=== PATIENT | male | born 1970 | race Caucasian/White ===

== ENCOUNTER 2020-03-30 10:34 | Emergency (ER) | payer BC, OTHER ==
[2020-03-30] MEDS ORDERED: Sodium Chloride 0.9% 1,000 ML IV ONE (10:42)
[2020-03-30] MEDS ORDERED: Sodium Chloride 0.9% 10 ML Syringe FLUSH PRN (10:42)
[2020-03-30] MEDS ORDERED: Sodium Chloride 0.9% 2.5 ML Syringe FLUSH PRN (10:42)
--- NOTE | 2020-03-30 10:55 | EDM.PDOC ---
ED HPI GENERAL MEDICAL PROBLEM - General Chief Complaint: Respiratory Problem Stated Complaint: SHORT OF BREATH Time Seen by Provider: 03/30/20 10:35 Source of Information: Reports: Patient History Limitations: Reports: No Limitations - History of Present Illness INITIAL COMMENTS - FREE TEXT/NARRATIVE: HISTORY AND PHYSICAL: History of present illness: Patient is a 50-year-old male who presents to the emergency room with complaints of palpitations and fluctuation of his pulse rate. States approximately a year ago he had newly developed atrial fibrillation which he had an ablation for. Last month he started having episodes where he felt his pulse would go very high and occasionally into the 60s (which he is stating is "too low for me"). Describes it as a heavy sensation in his chest/palpitations. He also states his blood pressure would fluctuate (but within normal range). These fluctuations cause him to feel dizzy, nauseated and fatigued. He states he had a echoc ardiogram and cardiac work-up last month with his PCP and is scheduled to see Dr. Patel (harness builder) tomorrow. Patient denies any fever, chills, headache, change in vision, syncope or near syncope. Denies any chest pain, back pain, hemoptysis or cough. Denies any abdominal pain, vomiting, diarrhea, constipation or dysuria. Has not noted any blood in urine or stool. Patient has been eating and drinking appropriately. Review of systems: As per history of present illness and below otherwise all systems reviewed and negative. Past medical history: As per history of present illness and as reviewed below otherwise noncontributory. Surgical history: As per history of present illness and as reviewed below otherwise noncontributory. Social history: See social history for further information Family history: As per history of present illness and as reviewed below otherwise noncontributory. Physical exam: General: Well developed and well nourished 50 year old male. Alert and orientated x 3. Nontoxic in appearance and in no acute distress. Vital signs are stable and have been reviewed by me. Nursing notes were reviewed. HEENT: Atraumatic, normocephalic, pupils equal and reactive bilaterally, negative for conjunctival pallor or scleral icterus, mucous membranes moist, TMs normal bilaterally, throat clear, neck supple, nontender, trachea midline. No drooling or trismus noted. No meningeal signs. No hot potato voice noted. Lungs: Clear to auscultation bilaterally. No wheezes, rales, or rhonchi. Chest nontender. Normal work of breathing, no accessory muscles used. Heart: S1S2, regular rate and rhythm without overt murmur, gallops, or rubs. No JVD. No peripheral edema Abdomen: Soft, nondistended, nontender. Normoactive bowel sounds. Negative for masses or costovertebral tenderness. Skin: Intact, warm, dry. No lesions or rashes noted. Hematologic: No petechiae or purpra. Mucosa appropriate color and normal nail bed color and refill. Extremities: Atraumatic, moves all extremities per self without difficulty or deficits, negative for cords or calf pain. Neurovascular unremarkable. Neuro: Awake, alert, oriented. Cranial nerves II through XII unremarkable. Ce rebellum unremarkable. Motor and sensory unremarkable throughout. Exam nonfocal. Psychiatric: Mood and affect are appropriate. Normal thought process. Answering questions appropriately. Notes: *This patient was seen and evaluated during the 2019 SARS-CoV-2 novel coronavirus pandemic period. Community viral transmission is ongoing at time of this encounter and the emergency department is operating under pandemic response procedures. WELLS' Criteria: Low risk group. HEART Score: Low risk group. EKG shows a sinus rhythm of rate of 67, no concern for STEMI. Chest x-ray is unremarkable. Today's lab work is unremarkable. Patient states he feels fine while he's here. I did call and speak with Dr Perrin's nurse, who confirms he has an appointment tomorrow at 2pm for reported bradycardia. I have talked with the patient about today's findings, in addition to providing specific details for plan of care. Reassessment at the time of disposition demonstrates that the patient is in no acute distress. He has not had any episodes while here in the ED. He feels safe to go home and follow up with cardiology tomorrow. The patient is stable for discharge, counseling was provided and we discussed in great detail signs and symptoms that would prompt them to return to the Emergency Department. Medication, follow up and supportive care measures were reviewed and discussed. Voices understanding and is agreeable to plan of care. Denies any further questions or concerns at this time. Diagnostics: CBC, CMP, Troponin, EKG, CXR, COVID, TSH, UA Therapeutics: NS at 100mls/hr Prescription: None Impression: Palpitations Plan: 1. Today your lab work is unremarkable. Your chest x-ray and EKG are within normal limits. Please attend your appointment with the harness builder tomorrow at 2 PM as you already have arranged. If your symptoms should worsen, new symptoms develop or any of the signs and symptoms we discussed should arise please return to the emergency room or call 911 (if needed). 2. You can alternate Tylenol and ibuprofen as needed for pain and fever management. Definitive disposition and diagnosis as appropriate pending reevaluation and review of above. - Related Data Allergies Allergy/AdvReac Type Severity Reaction Status Date / Time No Known Allergies Allergy Verified 03/30/20 11:16 Home Meds: Home Meds Levothyroxine Sodium [Levothyroxine] mcg PO DAILY 03/30/20 [History] Rosuvastatin [Crestor] mg PO BEDTIME 03/30/20 [History] ED ROS GENERAL - Review of Systems Review Of Systems: Comprehensive ROS is negative, except as noted in HPI. ED EXAM, GENERAL - Physical Exam Exam: See Below (See dictation) Course - Vital Signs Last Recorded V/S: Last Vital Signs Temp 97.7 F 03/30/20 10:48 Pulse 74 03/30/20 10:48 Resp 16 03/30/20 10:48 BP 142/79 H 03/30/20 10:48 Pulse Ox 97 03/30/20 10:48 - Orders/Labs/Meds Orders: Active Orders 24 hr Category Date Time Status EKG Documentation Completion [RC] STAT Care 03/30/20 10:42 Active Sodium Chloride 0.9% [Normal Saline] 1,000 ml Med 03/30/20 10:42 Active IV STAT Sodium Chloride 0.9% [Saline Flush] Med 03/30/20 10:42 Active 10 ml FLUSH ASDIRECTED PRN Sodium Chloride 0.9% [Saline Flush] Med 03/30/20 10:42 Active 2.5 ml FLUSH ASDIRECTED PRN Saline Lock Insert [OM.PC] Stat Oth 03/30/20 10:42 Ordered Medication Orders Sodium Chloride (Normal Saline) 1,000 mls @ 125 mls/hr IV STAT ONE Stop: 03/30/20 18:41 Last Admin: 03/30/20 11:16 Dose: 125 mls/hr Documented by: KADI Sodium Chloride (Saline Flush) 10 ml FLUSH ASDIRECTED PRN PRN Reason: Keep Vein Open Last Admin: 03/30/20 11:16 Dose: 10 ml Documented by: KADI Sodium Chloride (Saline Flush) 2.5 ml FLUSH ASDIRECTED PRN PRN Reason: Keep Vein Open Last Admin: 03/30/20 11:16 Dose: 2.5 ml Documented by: KADI Labs: Laboratory Tests 03/30/20 03/30/20 Range/Units 10:40 10:40 WBC 9.55 (4.0-11.0) K/uL RBC 4.91 (4.50-5.90) M/uL Hgb 15.4 (13.0-17.0) g/dL Hct 45.1 (38.0-50.0) % MCV 91.9 (80.0-98.0) fL MCH 31.4 (27.0-32.0) pg MCHC 34.1 (31.0-37.0) g/dL RDW Std Deviation 42.5 (28.0-62.0) fl RDW Coeff of Ciarra 13 (11.0-15.0) % Plt Count 152 (150-400) K/uL MPV 11.50 (7.40-12.00) fL Neut % (Auto) 60.9 (48.0-80.0) % Lymph % (Auto) 30.6 (16.0-40.0) % [place] % (Auto) 7.6 (0.0-15.0) % Eos % (Auto) 0.6 (0.0-7.0) % Baso % (Auto) 0.3 (0.0-1.5) % Neut # (Auto) 5.8 H (1.4-5.7) K/uL Lymph # (Auto) 2.9 H (0.6-2.4) K/uL [place] # (Auto) 0.7 (0.0-0.8) K/uL Eos # (Auto) 0.1 (0.0-0.7) K/uL Baso # (Auto) 0.0 (0.0-0.1) K/uL Nucleated RBC % 0.0 /100WBC Nucleated RBCs # 0 K/uL Sodium 143 (136-148) mmol/L Potassium 4.0 (3.5-5.1) mmol/L Chloride 109 H (98-107) mmol/L Carbon Dioxide 26.4 (21.0-32.0) mmol/L BUN 16 (7.0-18.0) mg/dL Creatinine 1.5 H (0.8-1.3) mg/dL Est Cr Clr Drug Dosing 60.16 mL/min Estimated GFR (MDRD) 49.3 ml/min Glucose 97 (74-106) mg/dL Calcium 9.0 (8.5-10.1) mg/dL Total Bilirubin 0.5 (0.2-1.0) mg/dL AST 20 (15-37) IU/L ALT 50 (14-63) IU/L Alkaline Phosphatase 62 (46-116) U/L Troponin I < 0.050 (0.000-0.056) ng/mL Total Protein 7.3 (6.4-8.2) g/dL Albumin 3.9 (3.4-5.0) g/dL Globulin 3.4 (2.6-4.0) g/dL Albumin/Globulin Ratio 1.1 (0.9-1.6) TSH 3rd Generation 0.84 (0.36-3.74) uIU/mL Meds: Medications Generic Name Dose Route Start Last Admin Trade Name Freq PRN Reason Stop Dose Admin Sodium Chloride 1,000 mls @ 125 mls/hr 03/30/20 10:42 03/30/20 11:16 Normal Saline IV 03/30/20 18:41 125 mls/hr STAT ONE Administration Sodium Chloride 10 ml 03/30/20 10:42 03/30/20 11:16 Saline Flush FLUSH 10 ml ASDIRECTED PRN Administration Keep Vein Open Sodium Chloride 2.5 ml 03/30/20 10:42 03/30/20 11:16 Saline Flush FLUSH 2.5 ml ASDIRECTED PRN Administration Keep Vein Open Departure - Departure Time of Disposition: 11:54 Disposition: Home, Self-Care 01 Clinical Impression: Palpitations - Discharge Information Instructions: Palpitations, [id number] Forms: ED Department Discharge Additional Instructions: The following information is given to patients seen in the emergency department who are being discharged to home. This information is to outline your options for follow-up care. We provide all patients seen in our emergency department with a follow-up referral. The need for follow-up, as well as the timing and circumstances, are variable depending upon the specifics of your emergency department visit. If you don't have a primary care physician on staff, we will provide you with a referral. We always advise you to contact your personal physician following an emergency department visit to inform them of the circumstance of the visit and for follow-up with them and/or the need for any referrals to a consulting specialist. The emergency department will also refer you to a specialist when appropriate. This referral assures that you have the opportunity for follow-up care with a specialist. All of these measure are taken in an effort to provide you with optimal care, which includes your follow-up. Under all circumstances we always encourage you to contact your private physician who remains a resource for coordinating your care. When calling for follow-up care, please make the office aware that this follow-up is from your recent emergency room visit. If for any reason you are refused follow-up, please contact the [facility] Emergency Department at and asked to speak to the emergency department charge nurse. [facility] [address] [place] [address] [id number] [address] Thank you for choosing the [facility] emergency department in [place] for your medical needs today. It was a pleasure caring for you. Today you were seen in the emergency department for fluctuation in pulse and blood pressure. 1. Today your lab work is unremarkable. Your chest x-ray and EKG are within normal limits. Please attend your appointment with the harness builder tomorrow at 2 PM as you already have arranged. If your symptoms should worsen, new symptoms develop or any of the signs and symptoms we discussed should arise please return to the emergency room or call 911 (if needed). 2. You can alternate Tylenol and ibuprofen as needed for pain and fever management. Sepsis Event Note (ED) - Focused Exam Vital Signs: Vital Signs Temp Pulse Resp BP Pulse Ox 03/30/20 10:48 97.7 F 74 16 142/79 H 97 - My Orders Last 24 Hours: My Active Orders 03/30/20 10:42 EKG Documentation Completion [RC] STAT Sodium Chloride 0.9% [Normal Saline] 1,000 ml IV STAT Sodium Chloride 0.9% [Saline Flush] 10 ml FLUSH ASDIRECTED PRN Sodium Chloride 0.9% [Saline Flush] 2.5 ml FLUSH ASDIRECTED PRN Saline Lock Insert [OM.PC] Stat - Assessment/Plan Last 24 Hours: My Active Orders 03/30/20 10:42 EKG Documentation Completion [RC] STAT Sodium Chloride 0.9% [Normal Saline] 1,000 ml IV STAT Sodium Chloride 0.9% [Saline Flush] 10 ml FLUSH ASDIRECTED PRN Sodium Chloride 0.9% [Saline Flush] 2.5 ml FLUSH ASDIRECTED PRN Saline Lock Insert [OM.PC] Stat
--- NOTE | 2020-03-30 11:11 | CR ---
INDICATION: Palpitations TECHNIQUE: Single view chest. FINDINGS: The lungs are clear. The heart, mediastinum and pulmonary vessels are of normal size. There is no evidence of pleural disease. IMPRESSION: Negative chest. Dictated by Kita Castro MD @ Mar 30 2020 11:09AM Signed by Dr. Kita Castro @ Mar 30 2020 11:09AM
--- NOTE | 2020-03-30 11:23 | PCM.SN.2 ---
#1 Interpretation EKG Date: 03/30/20 Time: 10:38 Rhythm: NSR Rate (Beats/Min): 67 [place]: Normal P-Wave: Present QRS: Normal ST-T: Normal QT: Normal DE/PQ Interval: 157 EKG Interpretation Comments: non-ischemic
[2020-03-30 11:26] LABS: BLOOD UREA NITROGEN,BUN 16 mg/dL (7.0-18.0); CARBON DIOXIDE,CO2 26.4 mmol/L (21.0-32.0); CHLORIDE,CL 109 mmol/L (98-107); GLUCOSE RANDOM 97 mg/dL (74-106); SODIUM,NA 143 mmol/L (136-148)
== END 2020-03-30 12:48 | disposition home or self-care (01) ==
LOC: MW.ED 10:34
DX: R00.2 Palpitations (principal); Z79.899 Other long term (current) drug therapy
CPT/HCPCS: 36415; 71045; 80053; 84443; 84484; 85025; 93005; 99285; J7030; 93010

== ENCOUNTER 2020-10-29 12:18 | Emergency (ER) | payer BC ==
[2020-10-29] MEDS ORDERED: Diltiazem 25 MG/5 ML SDV IVPUSH ONE (12:45)
[2020-10-29 13:21] LABS: BLOOD UREA NITROGEN,BUN 15 mg/dL (7.0-18.0); CARBON DIOXIDE,CO2 26.5 mmol/L (21.0-32.0); CHLORIDE,CL 105 mmol/L (98-107); GLUCOSE RANDOM 118 mg/dL (74-106); POTASSIUM,K 4.3 mmol/L (3.5-5.1); SODIUM,NA 140 mmol/L (136-148)
[2020-10-29] MEDS ORDERED: Magnesium Oxide 400 MG Tab PO ONE (13:30)
--- NOTE | 2020-10-29 14:53 | CR ---
INDICATION: AFib TECHNIQUE: Single view chest. FINDINGS: The lungs are clear. The heart, mediastinum and pulmonary vessels are of normal size. There is no evidence of pleural disease. IMPRESSION: Negative chest. Dictated by Kita Castro MD @ 10/29/2020 2:51:[address] Kita Castro @ Oct 29 2020 2:51PM
--- NOTE | 2020-10-29 15:03 | EDM.PDOC ---
ED HPI GENERAL MEDICAL PROBLEM - General Chief Complaint: Cardiovascular Problem Time Seen by Provider: 10/29/20 12:28 - History of Present Illness INITIAL COMMENTS - FREE TEXT/NARRATIVE: CHIEF COMPLAINT(S): Palpitations HISTORY OF PRESENT ILLNESS: This is a 50-year-old man with a past medical history of atrial fibrillation status post ablation approximately 2 years ago is not on any medication or anticoagulation who presents to the emergency department with palpitations. The patient states that prior to arrival he started to experience palpitations. He has been experiencing couple of episodes of palpitations. They are going on for greater than 4 hours. He denies any chest pain, shortness of breath, abdominal pain, nausea or vomiting. He states that he just feels that he is running a race. He denies any recent travel, recent surgery, prior history of DVT or PE. He denies any cocaine use or excessive caffeine use. REVIEW OF SYSTEMS: Constitutional: Denies fever, chills. Eyes: Denies eye pain Ears, Nose, Mouth, & Throat: Denies earache Cardiovascular: Positive for palpitations denies chest pain Respiratory: Denies shortness of breath Gastrointestinal: Denies Nausea, vomiting, diarrhea, hematochezia. Genitourinary: Denies hematuria Skin:Denies a rash MSK: Denies joint pain Neurological: Denies blurred vision Psychiatric: Denies depression PAST MEDICAL HISTORY: As per history of present illness and as reviewed below otherwise noncontributory. SURGICAL HISTORY: As per history of present illness and as reviewed below otherwise noncontributory. SOCIAL HISTORY: As per history of present illness and as reviewed below otherwise noncontributory. FAMILY HISTORY: As per history of present illness and as reviewed below otherwise noncontributory. EXAMINATION OF ORGAN SYSTEMS/BODY AREAS: Constitutional: Blood pressure was 118/87, heart rate 158, respiratory rate 18 with a saturation of 98% on room air. Temperature 37.1 General: Well-appearing man who is in no acute distress Psychiatric: Appropriate mood and affect. Eyes: No scleral icterus or conjunctival erythema ENMT: Moist mucous membranes. No pharyngeal erythema Cardiovascular: Irregularly irregular rate and rhythm no gallops, murmurs, or rubs. Bilateral upper extremity pulses symmetric and intact. No peripheral edema. No JVD. Respiratory: Lungs clear to auscultation bilaterally. No wheezes, rales, or rhonchi. Gastrointestinal: Soft, non-tender, non-distended. Normoactive bowel sounds Genitourinary: No suprapubic tenderness Musculoskeletal: Normal range of motion. Skin: No lesions or abrasions. Neurological: Alert, GCS 15 MEDICAL DECISION MAKING AND COURSE IN THE ED WITH INTERPRETATION/REVIEW OF DIAGNOSTIC STUDIES: This is a 50-year-old man with a past medical prescription atrial fibrillation status post ablation approximately 2 years ago who is not on any medication for atrial fibrillation who presents to the emergency department with palpitations. Immediately upon entering the room we did place the patient on diagnostic cardiac sonographer and on cardiac monitoring did reveal that he was in atrial fibrillation with RVR. We will obtain an EKG. Pulse oximetry at this time is appropriate at 98% with good waveform. At this time given the duration of symptoms and his history of atrial fibrillation we will obtain a BMP, troponin and a TSH. Given that his less than 24 to 48 hours I did contact [facility] in [place] to speak with Dr. Sola Lawrence regarding possible cardioversion. He recommended against cardioversion at this time continue rate control. EKG was obtained which did reveal atrial fibrillation with RVR. Laboratory: BMP reveals elevated creatinine of 1.4, hyperglycemia at 118. Magnesium is low at 1.7. Troponin is negative. TSH is normal. Given atrial fibrillation with RVR I did provide the patient with 25 mg of IV diltiazem. After approximately 60 seconds the patient's heart rate is now controlled and was in the 80s. Given the hypomagnesemia we will provide the patient with magnesium oxide by mouth. Obtain a chest x-ray. The radiological images were viewed by myself along with reading the report from the radiologist. Chest x-ray does not reveal any acute cardiopulmonary process. At this time the patient was able to provide me with his prior medication which was verapamil. I contacted our hospitalist at this time to get some further recommendations as I do not believe the patient requires admission as he has a retail operations manager here that he can follow-up with. At this time he is low risk for blood clots therefore no anticoagulation will be started. We will start the patient on his home verapamil and start him on low-dose aspirin. He will follow up with cardiology this week. He was no discharge at this time and had no further questions DISPOSITION: The patient was discharged home in stable condition. The patient will follow up with cardiology within 1 to 3 days CONDITION: Fair PROCEDURES: Cardiac monitoring interpretation, pulse oximetry interpretation FINAL IMPRESSION(S)/DIAGNOSES: 1. Acute atrial fibrillation with RVR Critical Care Procedure Note Authorized and performed by: Rob Servin M.D. Critical Care Time: 40 minutes Due to a high probability of clinically significant, life threatening deterioration, the patient required my highest level of preparedness to intervene emergently and I personally spent this critical care time directly and personally managing the patient. This critical care time included obtaining a history, examining the patient, pulse oximetry; ordering and review of studies; arranging urgent treatment with development of a management plan; evaluation of a patients reponse to treatment; frequent assessment; and discussions with other providers. This critical care time was performed to assess and manage the high probability of imminent, life threatening deterioration that could result in multiorgan failure. It was exclusive of separate billable procedures and treating other patients. Please see MDM section and rest of the note for further information on patient assessment and treatment. Please see MDM section and rest of the note for further information on patient assessment and treatment. Rob Servin M.D. - Related Data Allergies Allergy/AdvReac Type Severity Reaction Status Date / Time No Known Allergies Allergy Verified 10/29/20 12:29 Home Meds: Home Meds Levothyroxine Sodium [Levothyroxine] mcg PO DAILY 03/30/20 [History] Rosuvastatin [Crestor] mg PO BEDTIME 03/30/20 [History] Verapamil HCl [Verapamil Sr] 120 mg PO DAILY #30 cap24h.pel 10/29/20 [Rx] Past Medical History Cardiovascular History: Reports: Afib, High Cholesterol - Infectious Disease History Infectious Disease History: Reports: None Social & Family History - Family History Family Medical History: No Pertinent Family History - Tobacco Use Tobacco Use Status *Q: Never Tobacco User - Caffeine Use Caffeine Use: Reports: None - Recreational Drug Use Recreational Drug Use: No Drug Use in Last 12 Months: No ED ROS GENERAL - Review of Systems Review Of Systems: See Below ED EXAM, GENERAL - Physical Exam Exam: See Below Course - Vital Signs Last Recorded V/S: Last Vital Signs Temp 37.1 C 10/29/20 12:38 Pulse 97 10/29/20 14:33 Resp 18 10/29/20 14:33 BP 119/78 10/29/20 14:33 Pulse Ox 97 10/29/20 14:33 - Orders/Labs/Meds Labs: Laboratory Tests 10/29/20 Range/Units 12:37 Sodium 140 (136-148) mmol/L Potassium 4.3 (3.5-5.1) mmol/L Chloride 105 (98-107) mmol/L Carbon Dioxide 26.5 (21.0-32.0) mmol/L BUN 15 (7.0-18.0) mg/dL Creatinine 1.4 H (0.8-1.3) mg/dL Est Cr Clr Drug Dosing 64.45 mL/min Estimated GFR (MDRD) 53.4 ml/min Glucose 118 H (74-106) mg/dL Calcium 8.9 (8.5-10.1) mg/dL Magnesium 1.7 L (1.8-2.4) mg/dL Troponin I < 0.050 (0.000-0.056) ng/mL TSH, Ultra Sensitive 2.68 (0.36-3.74) uIU/mL Meds: Medications Discontinued Medications Generic Name Dose Route Start Last Admin Trade Name Freq PRN Reason Stop Dose Admin Diltiazem HCl 25 mg 10/29/20 12:45 10/29/20 12:50 Diltiazem 25 Mg/5 Ml Sdv IVPUSH 10/29/20 12:46 25 mg ONETIME ONE Administration Magnesium Oxide 800 mg 10/29/20 13:30 10/29/20 13:56 Magnesium Oxide 400 Mg Tab PO 10/29/20 13:31 800 mg ONETIME ONE Administration Departure - Departure Time of Disposition: 15:00 Disposition: Home, Self-Care 01 Condition: Fair Clinical Impression: Atrial fibrillation - Discharge Information *PRESCRIPTION DRUG MONITORING PROGRAM REVIEWED*: No *COPY OF PRESCRIPTION DRUG MONITORING REPORT IN PATIENT GEOVANY: No Prescriptions: Verapamil HCl [Verapamil Sr] 120 mg PO DAILY #30 cap24h.pel Instructions: Atrial Fibrillation, [id number] Referrals: PCP,None [Primary Care Provider] - Chris Patel MD [Physician] - Forms: ED Department Discharge Additional Instructions: You were evaluated today on an emergent basis. At this time given your history of atrial fibrillation we did decide to control your heart rate instead of c ardiovert. We will start you on your home medication as before and I recommend you take 81 mg of aspirin daily. As discussed I would like you to follow-up with cardiology within [address] to [address] you on the follow-up list. It is important that you make this appointment that is scheduled for you. You will be contacted with the appointment time. Please return to the emergency department if you have any chest pain, shortness of breath, or feel like your heart is racing again. [facility] [address] [place] [id number] [facility] [address] [place] [id number] The patient is informed of any results of their evaluation and diagnostic workup and all questions are answered. They are given discharge instructions and return precautions. The patient is stable for discharge. The patient states they understand and agree with the plan and that they will return if their symptoms get worse or if they have any new concerns. The following information is given to patients seen in the emergency department who are being discharged to home. This information is to outline your options for follow-up care. We provide all patients seen in our emergency department with a follow-up referral. The need for follow-up, as well as the timing and circumstances, are variable depending upon the specifics of your emergency department visit. If you don't have a primary care physician on staff, we will provide you with a referral. We always advise you to contact your personal physician following an emergency department visit to inform them of the circumstance of the visit and for follow-up with them and/or the need for any referrals to a consulting specialist. The emergency department will also refer you to a specialist when appropriate. This referral assures that you have the opportunity for follow-up care with a specialist. All of these measure are taken in an effort to provide you with optimal care, which includes your follow-up. Under all circumstances we always encourage you to contact your private physician who remains a resource for coordinating your care. When calling for follow-up care, please make the office aware that this follow-up is from your recent emergency room visit. If for any reason you are refused follow-up, please contact the [facility] Emergency Department at and asked to speak to the emergency department charge nurse.
--- NOTE | 2020-10-30 07:12 | PCM.EKG ---
#1 Interpretation EKG Date: 10/29/20 Time: 12:22 Rhythm: A-Fib Rate (Beats/Min): 155 Wells: Normal P-Wave: Absent QRS: Normal ST-T: Normal QT: Normal Comparison: Change From Previous EKG (03/30/20 -> sinus rhythm) EKG Interpretation Comments: Atrial fibrillation with RVR #2 Interpretation EKG Date: 10/29/20 Time: 12:56 Rhythm: A-Fib Rate (Beats/Min): 87 Wells: Normal P-Wave: Absent QRS: Normal ST-T: Normal QT: Normal Comparison: No Change (today) EKG Interpretation Comments: Atrial Fibrillation, RVR resolved
== END 2020-10-29 15:28 | disposition home or self-care (01) ==
LOC: MW.ED 12:18
DX: I48.91 Unspecified atrial fibrillation (principal); E78.00 Pure hypercholesterolemia, unspecified; Z79.899 Other long term (current) drug therapy
CPT/HCPCS: 36415; 71045; 80048; 83735; 84443; 84484; 93005; 96374; 99285; A9270; J3490; 99291

== ENCOUNTER 2020-11-05 20:49 | Emergency (ER) | payer BC ==
[2020-11-05] MEDS ORDERED: Sodium Chloride 0.9% 2.5 ML Syringe FLUSH PRN (21:04)
[2020-11-05] MEDS ORDERED: Sodium Chloride 0.9% 10 ML Syringe FLUSH PRN (21:04)
--- NOTE | 2020-11-05 21:07 | PCM.EKG ---
#1 Interpretation EKG Interpretation Comments: EKG: As interpreted by ER physician: Marnie: Nonspecific ST-T wave abnormalities Normal axis No evidence of ST elevation [place] Normal sinus rhythm heart rate of 83 November 05, 2020 8:56 PM
[2020-11-05 22:04] LABS: BLOOD UREA NITROGEN,BUN 20 mg/dL (7.0-18.0); CARBON DIOXIDE,CO2 26.7 mmol/L (21.0-32.0); CHLORIDE,CL 104 mmol/L (98-107); GLUCOSE RANDOM 119 mg/dL (74-106); SODIUM,NA 141 mmol/L (136-148)
--- NOTE | 2020-11-05 22:45 | EDM.PDOC ---
ED HPI GENERAL MEDICAL PROBLEM - General Chief Complaint: Chest Pain Stated Complaint: CHEST PAINS Time Seen by Provider: 11/05/20 21:02 - History of Present Illness INITIAL COMMENTS - FREE TEXT/NARRATIVE: HISTORY AND PHYSICAL: History of present illness: This a 50-year-old gentleman with history significant for atrial fibrillation who is status post ablation and electrical cardioversion approximately 1 and 1/2 years ago who had a normal cardiac catheterization at that time who presents ER today complaining of left-sided discomfort in his chest and shoulder that started earlier this evening approximate 1 hour prior to arrival. Patient reports that he was recently in atrial fibrillation for the last week. He reports he was seen and evaluated in the hospital and was discharged home on verapamil for rate control. He reports that he was able to see his product grader, Dr. Vaughan in the office. He reports that at that time he was started on anticoagulation therapy and was informed that he would need electrical cardioversion in several weeks. Patient reports he has been doing fairly well over the last several days. He reports that earlier this evening he felt himself go back into sinus rhythm and since then he has been feeling a discomfort in his left chest. Patient denies any recent fevers, shakes, chills, nausea, vomiting, diarrhea, dysuria, frequency, urgency, shortness of breath, abdominal pain. Patient reports no pain or discomfort rating to his jaw or back. Patient denies any diaphoresis, shortness of breath, nausea. Patient reports no change in his discomfort with exertion or ambulation. Patient r eports no change in discomfort with deep inspiration. Patient reports that the pain has been persistent for approximately 2 hours prior to arrival to the ED. Review of systems: As per history of present illness and below otherwise all systems reviewed and negative. Past medical history: As per history of present illness and as reviewed below otherwise noncontributory. Surgical history: As per history of present illness and as reviewed below otherwise noncontributory. Social history: No reported history of drug abuse. Family history: As per history of present illness and as reviewed below otherwise noncontributory. Physical exam: This patient was seen and evaluated during the 2019 SARS-CoV-2 novel coronavirus pandemic period. Community viral transmission is ongoing at time of this encounter and the emergency department is operating under pandemic response procedures. Constitutional: Patient is oriented to person, place, and time. Appears well- developed and well-nourished. No distress. HEENT: Moist mucous membranes Head: Normocephalic and atraumatic Eyes: Right eye exhibits no discharge. Left eye exhibits no discharge. No scleral icterus Neck: Normal range of motion. No tracheal deviation present. Cardiovascular: Normal rate and regular rhythm. Pulmonary: Effort normal, no respiratory distress. Abdominal: No distention Musculoskeletal: Normal range of motion Neurologic: Alert and oriented to person, place and time. Skin: [place], warm and dry. Psychiatric: Normal mood and affect. Behavior is normal. Judgment and thought content normal. Nursing note and vital signs have been reviewed Diagnostics: Chest Xray: Normal cardiac silhouette No infiltrates or effusions identified. No PTX No evidence of acute bony fracture. As interpreted by ER MD: Marnie Castro: [] Assessment and plan: This is a 50-year-old gentleman who presents to the ED today complaining of atypical left-sided chest pain. Patient has been in A. fib for approximately 1 week now and just recently cardioverted prior to the symptoms starting earlier this evening. Patient is currently on anticoagulation therapy. Patient reports he had a normal cardiac catheterization approximate 1-1/2 years ago. Patient's EKG is unremarkable without any evidence of ischemia. Given that the patient was recently in rapid A. fib and had no evidence of ischemia it is unlikely that he has any significant coronary artery disease as he is already had his own stress test. Patient's troponin is normal. Patient's presentation is highly unlikely for cardiac etiology/ischemia. Utilizing shared decision making, the patient feels comfortable with the plan to be discharged home to resume follow- up with Dr. Vaughan. Patient will return to the ED if he start developing any worsening discomfort, shortness of breath or any other new or concerning symptoms. Reassessment at the time of disposition demonstrates that the patient is in no acute distress. The patient has remained stable throughout the entire ED visit and is without objective evidence for acute process requiring urgent intervention or hospitalization. The patient is stable for discharge, counseling is provided as documented above, discussed symptomatic treatment and specific conditions for return. I have spoken with the patient/caregiver and discussed todays findings, in addition to providing specific details for the plan of care. Questions are answered and there is agreement with the plan. Definitive disposition and diagnosis as appropriate pending reevaluation and review of above. - Related Data Allergies Allergy/AdvReac Type Severity Reaction Status Date / Time No Known Allergies Allergy Verified 10/29/20 12:29 Home Meds: Home Meds Levothyroxine Sodium [Levothyroxine] mcg PO DAILY 03/30/20 [History] Rosuvastatin [Crestor] mg PO BEDTIME 03/30/20 [History] Verapamil HCl [Verapamil Sr] 120 mg PO DAILY #30 cap24h.pel 10/29/20 [Rx] Past Medical History Cardiovascular History: Reports: Afib, High Cholesterol - Infectious Disease History Infectious Disease History: Reports: None Social & Family History - Family History Family Medical History: No Pertinent Family History - Caffeine Use Caffeine Use: Reports: None ED ROS GENERAL - Review of Systems Review Of Systems: See Below ED EXAM, GENERAL - Physical Exam Exam: See Below Course - Vital Signs Last Recorded V/S: Last Vital Signs Temp 97.3 F 11/05/20 20:59 Pulse 76 11/05/20 22:28 Resp 18 11/05/20 22:28 BP 118/72 11/05/20 22:28 Pulse Ox 97 11/05/20 22:28 - Orders/Labs/Meds Orders: Active Orders 24 hr Category Date Time Status EKG Documentation Completion [RC] AM Care 11/05/20 21:04 Active Chest 1V Frontal [CR] Stat Exams 11/05/20 21:04 Taken Sodium Chloride 0.9% [Saline Flush] Med 11/05/20 21:04 Active 10 ml FLUSH ASDIRECTED PRN Sodium Chloride 0.9% [Saline Flush] Med 11/05/20 21:04 Active 2.5 ml FLUSH ASDIRECTED PRN Saline Lock Insert [OM.PC] Stat Oth 11/05/20 21:04 Ordered Medication Orders Sodium Chloride (Sodium Chloride 0.9% 10 Ml Syringe) 10 ml FLUSH ASDIRECTED PRN PRN Reason: Keep Vein Open Last Admin: 11/05/20 22:30 Dose: 10 ml Documented by: KAREN Sodium Chloride (Sodium Chloride 0.9% 2.5 Ml Syringe) 2.5 ml FLUSH ASDIRECTED PRN PRN Reason: Keep Vein Open Last Admin: 11/05/20 22:30 Dose: 2.5 ml Documented by: KAREN Labs: Laboratory Tests 11/05/20 11/05/20 11/05/20 Range/Units 21:32 21:32 21:32 WBC 10.29 (4.0-11.0) K/uL RBC 4.81 (4.50-5.90) M/uL Hgb 15.2 (13.0-17.0) g/dL Hct 43.3 (38.0-50.0) % MCV 90.0 (80.0-98.0) fL MCH 31.6 (27.0-32.0) pg MCHC 35.1 (31.0-37.0) g/dL RDW Std Deviation 42.0 (28.0-62.0) fl RDW Coeff of Ciarra 13 (11.0-15.0) % Plt Count 160 (150-400) K/uL MPV 11.20 (7.40-12.00) fL Neut % (Auto) 51.3 (48.0-80.0) % Lymph % (Auto) 37.1 (16.0-40.0) % Woodward % (Auto) 10.4 (0.0-15.0) % Eos % (Auto) 1.0 (0.0-7.0) % Baso % (Auto) 0.2 (0.0-1.5) % Neut # (Auto) 5.3 (1.4-5.7) K/uL Lymph # (Auto) 3.8 H (0.6-2.4) K/uL Woodward # (Auto) 1.1 H (0.0-0.8) K/uL Eos # (Auto) 0.1 (0.0-0.7) K/uL Baso # (Auto) 0.0 (0.0-0.1) K/uL Nucleated RBC % 0.0 /100WBC Nucleated RBCs # 0 K/uL D-Dimer, Quantitative < 0.19 (0.0-0.50) mg/L FEU Sodium 141 (136-148) mmol/L Potassium 4.0 (3.5-5.1) mmol/L Chloride 104 (98-107) mmol/L Carbon Dioxide 26.7 (21.0-32.0) mmol/L BUN 20 H (7.0-18.0) mg/dL Creatinine 1.4 H (0.8-1.3) mg/dL Est Cr Clr Drug Dosing 64.45 mL/min Estimated GFR (MDRD) 53.4 ml/min Glucose 119 H (74-106) mg/dL Calcium 8.7 (8.5-10.1) mg/dL Total Bilirubin 0.3 (0.2-1.0) mg/dL AST 16 (15-37) IU/L ALT 34 (14-63) IU/L Alkaline Phosphatase 65 (46-116) U/L Troponin I < 0.050 (0.000-0.056) ng/mL B-Natriuretic Peptide (<100) PG/ML Total Protein 6.8 (6.4-8.2) g/dL Albumin 3.7 (3.4-5.0) g/dL Globulin 3.1 (2.6-4.0) g/dL Albumin/Globulin Ratio 1.2 (0.9-1.6) 11/05/20 Range/Units 21:32 WBC (4.0-11.0) K/uL RBC (4.50-5.90) M/uL Hgb (13.0-17.0) g/dL Hct (38.0-50.0) % MCV (80.0-98.0) fL MCH (27.0-32.0) pg MCHC (31.0-37.0) g/dL RDW Std Deviation (28.0-62.0) fl RDW Coeff of Ciarra (11.0-15.0) % Plt Count (150-400) K/uL MPV (7.40-12.00) fL Neut % (Auto) (48.0-80.0) % Lymph % (Auto) (16.0-40.0) % Woodward % (Auto) (0.0-15.0) % Eos % (Auto) (0.0-7.0) % Baso % (Auto) (0.0-1.5) % Neut # (Auto) (1.4-5.7) K/uL Lymph # (Auto) (0.6-2.4) K/uL Woodward # (Auto) (0.0-0.8) K/uL Eos # (Auto) (0.0-0.7) K/uL Baso # (Auto) (0.0-0.1) K/uL Nucleated RBC % /100WBC Nucleated RBCs # K/uL D-Dimer, Quantitative (0.0-0.50) mg/L FEU Sodium (136-148) mmol/L Potassium (3.5-5.1) mmol/L Chloride (98-107) mmol/L Carbon Dioxide (21.0-32.0) mmol/L BUN (7.0-18.0) mg/dL Creatinine (0.8-1.3) mg/dL Est Cr Clr Drug Dosing mL/min Estimated GFR (MDRD) ml/min Glucose (74-106) mg/dL Calcium (8.5-10.1) mg/dL Total Bilirubin (0.2-1.0) mg/dL AST (15-37) IU/L ALT (14-63) IU/L Alkaline Phosphatase (46-116) U/L Troponin I (0.000-0.056) ng/mL B-Natriuretic Peptide 72 (<100) PG/ML Total Protein (6.4-8.2) g/dL Albumin (3.4-5.0) g/dL Globulin (2.6-4.0) g/dL Albumin/Globulin Ratio (0.9-1.6) Meds: Medications Generic Name Dose Route Start Last Admin Trade Name Freq PRN Reason Stop Dose Admin Sodium Chloride 10 ml 11/05/20 21:04 11/05/20 22:30 Sodium Chloride 0.9% 10 Ml Syringe FLUSH 10 ml ASDIRECTED PRN Administration Keep Vein Open Sodium Chloride 2.5 ml 11/05/20 21:04 11/05/20 22:30 Sodium Chloride 0.9% 2.5 Ml Syringe FLUSH 2.5 ml ASDIRECTED PRN Administration Keep Vein Open Departure - Departure Time of Disposition: 22:45 Disposition: Home, Self-Care 01 Condition: Good Clinical Impression: Acute nonspecific chest pain with low risk of coronary artery disease - Discharge Information Instructions: Nonspecific Chest Pain, Adult Referrals: PCP,None [Primary Care Provider] - Additional Instructions: Your seen and evaluated in the ER today secondary to chest discomfort. Your EKG and your heart enzymes and blood tests were all within normal limits. Please make an appointment to follow-up with your product grader for reevaluation. Please return to the ED if you develop any new or concerning symptoms. The following information is given to patients seen in the emergency department who are being discharged to home. This information is to outline your options for follow-up care. We provide all patients seen in our emergency department with a follow-up referral. The need for follow-up, as well as the timing and circumstances, are variable depending upon the specifics of your emergency department visit. If you don't have a primary care physician on staff, we will provide you with a referral. We always advise you to contact your personal physician following an emergency department visit to inform them of the circumstance of the visit and for follow-up with them and/or the need for any referrals to a consulting specialist. The emergency department will also refer you to a specialist when appropriate. This referral assures that you have the opportunity for follow-up care with a specialist. All of these measure are taken in an effort to provide you with optimal care, which includes your follow-up. Under all circumstances we always encourage you to contact your private physician who remains a resource for coordinating your care. When calling for follow-up care, please make the office aware that this follow-up is from your recent emergency room visit. If for any reason you are refused follow-up, please contact the [facility] Department at and asked to speak to the emergency department charge nurse. [facility] - Primary [facility] [address] [place] [id number] [address] [address] Sepsis Event Note (ED) - Focused Exam Vital Signs: Vital Signs Temp Pulse Resp BP Pulse Ox 11/05/20 22:28 76 18 118/72 97 11/05/20 21:40 78 18 113/73 96 11/05/20 20:59 97.3 F 82 18 116/83 96 - My Orders Last 24 Hours: My Active Orders 11/05/20 21:04 EKG Documentation Completion [RC] AM Chest 1V Frontal [CR] Stat Sodium Chloride 0.9% [Saline Flush] 10 ml FLUSH ASDIRECTED PRN Sodium Chloride 0.9% [Saline Flush] 2.5 ml FLUSH ASDIRECTED PRN Saline Lock Insert [OM.PC] Stat - Assessment/Plan Last 24 Hours: My Active Orders 11/05/20 21:04 EKG Documentation Completion [RC] AM Chest 1V Frontal [CR] Stat Sodium Chloride 0.9% [Saline Flush] 10 ml FLUSH ASDIRECTED PRN Sodium Chloride 0.9% [Saline Flush] 2.5 ml FLUSH ASDIRECTED PRN Saline Lock Insert [OM.PC] Stat
--- NOTE | 2020-11-05 23:16 | CR ---
INDICATION: Chest pain. TECHNIQUE: Chest 1 view. COMPARISON: 10/29/2020. FINDINGS: Cardiovascular and mediastinum: Heart size and vasculature are normal in caliber and appearance. Mediastinum is within normal limits. Lungs and pleural space: Lungs are clear. No sign of infiltrate or mass. No sign of pleural effusion. No pneumothorax. Bones and soft tissues: No significant findings. IMPRESSION: Lungs are clear. Dictated by Bubba Dawkins MD @ 11/05/2020 11:15:04 PM (Electronically Signed)
== END 2020-11-05 22:54 | disposition home or self-care (01) ==
LOC: MW.ED 20:49
DX: I25.119 Atherosclerotic heart disease of native coronary artery with unspecified angina pectoris (principal); I48.91 Unspecified atrial fibrillation; E78.00 Pure hypercholesterolemia, unspecified; Z79.899 Other long term (current) drug therapy
CPT/HCPCS: 36415; 71045; 71045-26; 80053; 83880; 84484; 85025; 85379; 99285-25